=== PATIENT | female | born 1940 | race Caucasian/White ===

== ENCOUNTER 2019-07-18 15:58 | Inpatient (IN) ==
[2019-07-18] MEDS ORDERED: IOPAMIDOL 100 ML BOTTLE IV ONE (15:59)
[2019-07-18] MEDS ORDERED: hydrALAZINE 20 MG/ML VIAL IV ONE (16:13)
[2019-07-18] MEDS ORDERED: KETOROLAC 30 MG/ML VIAL IV ONE (16:21)
[2019-07-18] MEDS ORDERED: CEPHALEXIN 500 MG CAPSULE PO ONE (16:23)
--- NOTE | 2019-07-18 16:24 | Emergency Department Note ---
Chest Pain HPI - General Chief Complaint: Chest Pain Stated Complaint: Chest pain Time Seen by Provider: 07/18/19 16:13 Source: patient, EMS Mode of arrival: EMS Limitations: no limitations - History of Present Illness HPI Narrative: 78-year-old female comes in complaining of chest pain in the epigastric and substernal areas that radiates to her back. She was sweaty and short of breath with that. Additionally she is complaining of lower leg edema for the last 3 weeks. Her blood pressures have been in the 190s systolic for over a month now as well. Unclear if she has had a fever. She was initially seen over minor care and they sent her here-her blood pressure was 240/117 there. They gave her nitroglycerin and sent-here her blood pressure is 196 systolic after getting nitroglycerin - Related Data Home Medications Medication Instructions Recorded Confirmed Estradiol [Estrace] 1 mg PO DAILY 08/12/15 07/18/19 Metoprolol Succinate [Toprol Xl] 50 mg PO DAILY 08/12/15 07/18/19 Omeprazole [PriLOSEC] 20 mg PO ACB 08/12/15 07/18/19 Oxybutynin Chloride [Ditropan] 5 mg PO DAILY 08/12/15 07/18/19 PARoxetine HCL [Paxil] 40 mg PO DAILY 08/12/15 07/18/19 atorvastatin 40 mg tablet 40 mg PO QDAY 10/09/18 07/18/19 Allergies Allergy/AdvReac Type Severity Reaction Status Date / Time No Known Drug Allergies Allergy Verified 07/18/19 15:58 Review of Systems All systems ED: reviewed and negative except as stated. Chest Pain PMH - Past Medical History Attestation: Yes: The following information was validated with the patient. Medical history: Reports: GERD, hyperlipidemia, hypertension, other (Urinary incontinence) Surgical history ED: Reports: knee replacement - Social History smoking status: Former smoker Physical Exam Normocephalic atraumatic. Conjunctive are clear sclerae white and icteric. No nasal discharge or congestion. Oropharynx pink and moist. Neck is supple without lymphadenopathy thyromegaly or carotid bruit. Heart is regular rate and rhythm no murmur appreciated. Lungs are clear to auscultation bilaterally without wheezes rales rhonchi or respiratory distress. Abdomen is soft tender in the epigastrium. Palpation the anterior chest wall also reveals tenderness with sternal palpation. Abdomen without distention. No peritoneal signs or guarding. She does have +1 to pedal edema bilaterally with redness on the lower half of legs bilaterally. Consistent with superficial cellulitis. I do not see any bulla or vesicles. Mildly tender. She is alert oriented able to answer questions appropriately Limitations: no limitations Course Vital Signs Temperature 98.1 F 07/18/19 15:58 Pulse Rate 72 07/18/19 15:58 Respiratory Rate 20 07/18/19 15:58 Blood Pressure 203/86 07/18/19 15:58 Pulse Oximetry (%) 98 07/18/19 15:58 Temperature 98.1 F 07/18/19 15:58 Pulse Rate 84 07/18/19 18:46 Respiratory Rate 9 L 07/18/19 18:46 Blood Pressure 185/94 07/18/19 18:46 Pulse Oximetry (%) 95 07/18/19 18:46 Chest Pain - Lab Data Lab results reviewed: Yes I reviewed the patient's lab results. Result diagrams: 07/18/19 16:24 07/18/19 16:24 Lab Results 07/18/19 07/18/19 07/18/19 Range/Units 16:23 16:24 16:24 WBC 8.2 (4.5-11.0) K/mcL RBC 4.28 (4.00-5.20) M/mcL Hgb 12.4 (12.0-15.0) g/dL Hct 37.3 (36.0-48.0) % POC Hct 36.0 (36.0-48.0) % MCV 87.1 (80.0-100.0) fL MCH 29.1 (26.0-34.0) pg MCHC 33.4 (31.0-36.0) g/dL RDW 14.7 H (11.5-14.5) % Plt Count 228 (140-440) K/mcL MPV 8.9 (7.4-10.4) fL Gran % 63.8 (38.0-78.0) % Lymph % (Auto) 24.9 (15.5-49.0) % [place] % (Auto) 7.7 (1.0-12.0) % Eos % (Auto) 3.2 (0.0-7.0) % Baso % (Auto) 0.4 (0.0-2.0) % Gran # 5.2 (1.8-8.0) K/mcL Lymph # (Auto) 2.0 (1.5-4.8) K/mcL [place] # (Auto) 0.6 (0.1-0.9) K/mcL Eos # (Auto) 0.3 (0.0-0.7) K/mcL Baso # (Auto) 0 (0.0-0.3) K/mcL D-Dimer 1.11 H (0.00-0.40) ug/ml POC Sodium 142 (133-145) mmol/L Sodium 142 (133-145) mmol/L POC Potassium 3.4 (3.3-5.1) mmol/L Potassium 3.5 (3.3-5.1) mmol/L POC Chloride 105 (96-108) mmol/L Chloride 105 (96-108) mmol/L Carbon Dioxide 25 (22-30) mmol/L POC Total CO2 27 (22-30) mmol/L Anion Gap 12.0 (8-16) POC BUN 18 (8-23) mg/dl BUN 17 (8-23) mg/dl Creatinine 1.1 (0.6-1.1) mg/dl POC Creatinine 1.2 H (0.6-1.1) mg/dl GFR Calculation 49 Glucose 99 (70-105) mg/dL POC Glucose 100 (70-105) mg/dL Calcium 8.7 (8.6-10.4) mg/dl POC WB Ioniz Calcium 1.14 L (1.16-1.32) mmol/L Total Bilirubin 0.3 (0.0-1.0) mg/dL AST 20 (0-37) U/l ALT 20 (0-40) U/l Alkaline Phosphatase 131 H (39-117) U/L Troponin T (0-0.03) ng/ml NT-Pro-B Natriuret Pep 172.2 (0-450) pg/ml Total Protein 7.1 (5.9-8.4) gm/dL Albumin 3.9 (3.2-5.2) gm/dL Globulin 3.2 (2.2-3.7) gm/dL Albumin/Globulin Ratio 1.2 (1.0-2.3) Lipase 37 (7-60) U/L 07/18/19 Range/Units 16:24 WBC (4.5-11.0) K/mcL RBC (4.00-5.20) M/mcL Hgb (12.0-15.0) g/dL Hct (36.0-48.0) % POC Hct (36.0-48.0) % MCV (80.0-100.0) fL MCH (26.0-34.0) pg MCHC (31.0-36.0) g/dL RDW (11.5-14.5) % Plt Count (140-440) K/mcL MPV (7.4-10.4) fL Gran % (38.0-78.0) % Lymph % (Auto) (15.5-49.0) % [place] % (Auto) (1.0-12.0) % Eos % (Auto) (0.0-7.0) % Baso % (Auto) (0.0-2.0) % Gran # (1.8-8.0) K/mcL Lymph # (Auto) (1.5-4.8) K/mcL [place] # (Auto) (0.1-0.9) K/mcL Eos # (Auto) (0.0-0.7) K/mcL Baso # (Auto) (0.0-0.3) K/mcL D-Dimer (0.00-0.40) ug/ml POC Sodium (133-145) mmol/L Sodium (133-145) mmol/L POC Potassium (3.3-5.1) mmol/L Potassium (3.3-5.1) mmol/L POC Chloride (96-108) mmol/L Chloride (96-108) mmol/L Carbon Dioxide (22-30) mmol/L POC Total CO2 (22-30) mmol/L Anion Gap (8-16) POC BUN (8-23) mg/dl BUN (8-23) mg/dl Creatinine (0.6-1.1) mg/dl POC Creatinine (0.6-1.1) mg/dl GFR Calculation Glucose (70-105) mg/dL POC Glucose (70-105) mg/dL Calcium (8.6-10.4) mg/dl POC WB Ioniz Calcium (1.16-1.32) mmol/L Total Bilirubin (0.0-1.0) mg/dL AST (0-37) U/l ALT (0-40) U/l Alkaline Phosphatase (39-117) U/L Troponin T < 0.01 (0-0.03) ng/ml NT-Pro-B Natriuret Pep (0-450) pg/ml Total Protein (5.9-8.4) gm/dL Albumin (3.2-5.2) gm/dL Globulin (2.2-3.7) gm/dL Albumin/Globulin Ratio (1.0-2.3) Lipase (7-60) U/L Urinalysis [id number] dipstick is normal here today; urine culture from 2 days ago show pansensitive E. coli except for resistant to ampicillin - Radiology Data Radiology results reviewed: Yes I reviewed the patient's radiology results. Chest x-ray shows no acute cardia pulmonary disease - EKG Data EKG attestation: Yes I reviewed and interpreted this EKG., Yes There are no EKG findings of acute coronary syndrome, Yes This EKG will be read by instructor kindergarten EKG results narrative: Rate is 69 normal sinus rhythm Disposition Pt seen by NETWORK SYSTEMS CONSULTANT/PA only: No Clinical Impression: Hypertensive urgency Cellulitis Qualifiers: Site of cellulitis: extremity Site of cellulitis of extremity: lower extremity Laterality: unspecified laterality Qualified Code(s): L03.119 - Cellulitis of unspecified part of limb Pneumonia Qualifiers: Pneumonia type: due to unspecified organism Laterality: bilateral Lung location: upper lobe of lung Qualified Code(s): J18.1 - Lobar pneumonia, unspec ified organism UTI (urinary tract infection) Qualifiers: Urinary tract infection type: acute cystitis Hematuria presence: without hematuria Qualified Code(s): N30.00 - Acute cystitis without hematuria Summary: Chest pain work-up started. Start Keflex for cellulitis of bilateral lower extremities. Fluids not started because she appears euvolemic on exam I do not want to add fluids if she is actually volume up. T BNP is ordered. Chest x-ray will also shed light on this. EKG is normal Hydralazine is ordered for hypertensive urgency. Concern for acute onset heart failure from long-standing blood pressure issues. Her blood pressure came down with this Chest x-ray does not show any acute features. However d-dimer is markedly elevated. CT scan angiogram of the chest is ordered which shows no acute pulmonary embolism but it does show groundglass opacities consistent with pneumonia/pneumonitis Urine culture was brought to my attention which shows E. coli pansensitive except for ampicillin from 07/16/2019. Her doctor had prescribed ciprofloxacin but she has not taken any yet; she has however picked that up at the pharmacy. We will add Rocephin as this will cover the UTI the cellulitis and the pneumonia/pneumonitis Chest pain work-up is otherwise okay. Troponin is normal more than 8 hours after onset of chest pain She did not bring her med list here so we will get med list from her pharmacy so we can adjust her blood pressure medicine- Discussed case with our hospitalist, Dr. Joyce. He agreed to accept the patient. Recommended nicardipine drip for hypertensive urgency and add vancomycin to the Rocephin already given. He actually recommended Zosyn but we had already given Rocephin. Disposition: Xfer As Inpt ([facility]) Condition: Serious Referrals: Dinesh Olsen ARNP [Primary Care Provider] -
[2019-07-18 16:31] LABS: POC Blood Urea Nitrogen 18 mg/dl (8-23); POC CO2 27 mmol/L (22-30); POC Calcium, Ionized 1.14 mmol/L (1.16-1.32); POC Chloride 105 mmol/L (96-108); POC Creatinine 1.2 mg/dl (0.6-1.1); POC Glucose, Random 100 mg/dL (70-105); POC Potassium 3.4 mmol/L (3.3-5.1); POC Sodium 142 mmol/L (133-145)
--- NOTE | 2019-07-18 16:50 | XRay Report ---
CLINICAL INFORMATION: Chest Pain COMPARISON: 10/09/2018 FINDINGS: Mild cardiomegaly is unchanged. Mediastinum and pulmonary vessels are normal. Lungs are clear. No effusions. IMPRESSION: Mild stable cardiomegaly. No acute disease Interpreted and Authenticated by: Get Melgoza 07/18/19
[2019-07-18 17:18] LABS: Basophils # (Auto) 0 K/mcL (0.0-0.3); Basophils % (Auto) 0.4 % (0.0-2.0); Eosinophils # (Auto) 0.3 K/mcL (0.0-0.7); Eosinophils % (Auto) 3.2 % (0.0-7.0); Granulocytes % (Auto) 63.8 % (38.0-78.0); Hematocrit 37.3 % (36.0-48.0); Hemoglobin 12.4 g/dL (12.0-15.0); Lymphocytes % (Auto) 24.9 % (15.5-49.0); Mean Cell Volume 87.1 fL (80.0-100.0); Mean Corpuscular HGB Conc 33.4 g/dL (31.0-36.0); Mean Platelet Volume 8.9 fL (7.4-10.4); Monocytes # (Auto) 0.6 K/mcL (0.1-0.9); Monocytes % (Auto) 7.7 % (1.0-12.0); Platelet Count 228 K/mcL (140-440); RBC 4.28 M/mcL (4.00-5.20); Red Cell Distribution Width 14.7 % (11.5-14.5); WBC 8.2 K/mcL (4.5-11.0)
[2019-07-18 17:42] LABS: ALT/SGPT 20 U/l (0-40); AST/SGOT 20 U/l (0-37); Albumin 3.9 gm/dL (3.2-5.2); Albumin/Globulin Ratio 1.2 (1.0-2.3); Alkaline Phosphatase 131 U/L (39-117); Bilirubin,Total 0.3 mg/dL (0.0-1.0); Blood Urea Nitrogen 17 mg/dl (8-23); Calcium 8.7 mg/dl (8.6-10.4); Carbon Dioxide 25 mmol/L (22-30); Chloride 105 mmol/L (96-108); Globulin 3.2 gm/dL (2.2-3.7); Glomerular Filtration Rate 49; Glucose 99 mg/dL (70-105); proBNP 172.2 pg/ml (0-450)
[2019-07-18] MEDS ORDERED: NITROFURANTOIN SR 100 MG CAPSULE PO ONE (18:20)
[2019-07-18] MEDS ORDERED: LABETALOL 5 MG/ML ML IV ONE (18:20)
--- NOTE | 2019-07-18 18:36 | Cat Scan Report ---
CLINICAL INFORMATION: Chest pain COMPARISON: 12/08/[address] without contrast TECHNIQUE: ml of Isovue-370 were injected intravenously. Using SmartPrep to maximize pulmonary artery opacification, .625mm helical slices were obtained from the lung apices through the lung bases. Following reconstruction, 2.5 mm sagittal, coronal, and axial reformations were processed. The exam was reviewed at mediastinal, lung, and bone windows. The exam was performed using radiation dose optimization techniques including, but not limited to, automated exposure control, adjustment of the mA and/or kV according to patient size and use of iterative reconstruction technique. FINDINGS: Mediastinal windows show the central pulmonary arteries are at upper limits of normal in diameter: main pulmonary artery 3.1 cm. Thoracic aorta is normal in diameter with diffuse atherosclerotic plaque. The heart is mildly enlarged. There is no adenopathy in the mediastinal hilar or axillary region. Small hiatal hernia is noted. Thyroid is unremarkable Pulmonary parenchymal windows show moderate patchy groundglass infiltrates diffusely throughout both lungs with mosaic perfusion pattern. A 4 mm nodule in the medial basilar segment left lower lobe is stable since 2017. There are no effusions. Bones and soft tissues the chest wall are normal IMPRESSION: 1. No evidence of pulmonary embolus 2. Moderate patchy groundglass infiltrates diffusely throughout both lungs with mosaic perfusion pattern. Consider aspiration or infection. ARDS or hemorrhage would be unlikely. 3. Small hiatal hernia Interpreted and Authenticated by: Get Melgoza 07/18/19
[2019-07-18] MEDS ORDERED: cefTRIAXone 1 GM VIAL IV ONE (18:49)
[2019-07-18] MEDS ORDERED: VANCOMYCIN 1,000 MG in 0.9 % SODIUM CHLORIDE 250 ML IV ONE (19:14)
[2019-07-18] MEDS ORDERED: niCARdipine 25 MG in 0.9 % SODIUM CHLORIDE 240 ML IV SCH ×2 (19:15→19:59)
--- NOTE | 2019-07-18 19:22 | Internal Med History&Physical ---
Medical - H&P: [facility] Patient information: Note initiated : 07/18/19 at 7:18 pm Service Date, if different from initiated Date: [] Patient: Romana Garcia a 78 y/o F admitted on for Chest pain. Chief Complaint: [] Chief complaint: Chest pain, weakness History of present illness: Ms. Garcia is a 78 year old F with a known history of poorly controlled hypertension who presents to minor care with epigastric discomfort along with shortness of breath. Initial work-up was consistent with hypertensive crisis systolics around 250. She was referred to [facility] ER where after initial work- up she was started on nicardipine drip. Initial troponins were negative. Hospitalist service was consulted after chest angiogram CT revealed multifocal infiltrates suggestive of pneumonia without evidence of PE or dissection. At the time of evaluation patient is alert and oriented. She endorses to poorly controlled hypertension for which she has not sought medical attention. She is currently on metoprolol. She endorses to bilateral lower extremity increasing swelling over the last couple of weeks along with increasing redness and pain. Additionally she complains of increasing exertional dyspnea from initially on maximal exertion now on minimal exertion. She is however able to talk in full sentences while at rest. Denies orthopnea or paroxysmal nocturnal dyspnea At the time of evaluation patient is alert and oriented. She denies active distress. She does feel short of breath and complains of bilateral lower extremity pain and swelling. She denies changes in medications. She further denies using NSAIDs or high salt diet. She denies unilateral weakness/blurred vision/hematuria or bloody stool Review of systems A 10 point review system was performed and is negative except as above Medical - H&P: PM Medical history: Hypertension GERD Anxiety disorder Hyperlipidemia Obesity Surgical history: Hysterectomy Smoking status: Former smoker Drug use: none Alcohol use: none Medical - H&P: Meds Home Medications Medication Instructions Recorded Confirmed Type Estradiol [Estrace] 1 mg PO DAILY 08/12/15 07/18/19 History Metoprolol Succinate [Toprol Xl] 50 mg PO DAILY 08/12/15 07/18/19 History Omeprazole [PriLOSEC] 20 mg PO ACB 08/12/15 07/18/19 History Oxybutynin Chloride [Ditropan] 5 mg PO DAILY 08/12/15 07/18/19 History PARoxetine HCL [Paxil] 40 mg PO DAILY 08/12/15 07/18/19 History atorvastatin 40 mg tablet 40 mg PO QDAY 10/09/18 07/18/19 History Allergies Allergy/AdvReac Type Severity Reaction Status Date / Time No Known Drug Allergies Allergy Verified 07/18/19 15:58 Medical - H&P: Exam - Constitutional Vitals: Temp Pulse Resp BP Pulse Ox 98.1 F 84 9 L 185/94 95 07/18/19 15:58 07/18/19 18:46 07/18/19 18:46 07/18/19 18:46 07/18/19 18:46 General appearance: morbidly obese Exam: Alert and oriented Head normocephalic oral cavity dry No ear nose discharge Neck no lymphadenopathy Eye movement symmetrical S1-S2 regular rhythm/ESM grade 1 Diminished breath sounds bases, labored breathing Abdomen soft nontender Lower extremity significant for bilateral lymphedema ankle the mid thigh. Generalized induration along with tenderness noted on palpation Skin otherwise no suspicious lesion Psych alert but anxious Neuro nonfocal Medical - H&P: Reslt - Labs CBC & Chem 7: 07/18/19 16:24 07/18/19 16:24 Labs: Short CBC 07/18/19 Range/Units 16:24 WBC 8.2 (4.5-11.0) K/mcL Hgb 12.4 (12.0-15.0) g/dL Hct 37.3 (36.0-48.0) % Plt Count 228 (140-440) K/mcL BMP 07/18/19 16:24 Sodium 142 Potassium 3.5 Chloride 105 Carbon Dioxide 25 BUN 17 Creatinine 1.1 Glucose 99 Calcium 8.7 Cardiac Enzymes 07/18/19 Range/Units 16:24 Troponin T < 0.01 (0-0.03) ng/ml Liver Function 07/18/19 Range/Units 16:24 Total Bilirubin 0.3 (0.0-1.0) mg/dL AST 20 (0-37) U/l ALT 20 (0-40) U/l Alkaline Phosphatase 131 H (39-117) U/L Albumin 3.9 (3.2-5.2) gm/dL Medical - H&P: A/P (1) Hypertensive crisis Current visit: Yes Status: Acute * Hypertensive crisis with pulmonary edema(bilateral groundglass infiltrates)-i nitial systolics around 250. Start nicardipine drip, initiate oral antihypertensives and target systolic around 160. Echocardiogram from 2018- 65% EF. Repeat echo * Bilateral multifocal pneumonia likely aspiration versus community-acquired versus flash pulmonary edema-antibiotic coverage/aspiration precautions/ST eval/supplemental oxygen/pulmonary toilet/sputum eval * Complicated E. coli UTI continue antibiotic coverage * Bilateral lower extremity cellulitis/lymphangitis/lipoid dermatosclerosis. Wound care consult/limb elevation/compressive wraps/antibiotic coverage/de- escalate based on sensitivities * Hyperlipidemia on statin * History of GERD on PPI * Anxiety disorder on Paxil * Full code * Perplexes Lovenox Plan * Inpatient ICU admission * Antibiotic coverage * Repeat echo * Wound care/limb elevation/compression wraps * Pulmonary toilet/supplemental oxygen/bronchodilators * Prior medical condition management home meds * PT OT nutrition support
[2019-07-18] MEDS ORDERED: MAGNESIUM SULFATE 2 GM/50 ML BAG IV PRN (19:59)
[2019-07-18] MEDS ORDERED: VANCOMYCIN PER PHARMACY IV SCH (19:59)
[2019-07-18] MEDS ORDERED: ACETAMINOPHEN 1,000 MG/100 ML BOTTLE IV PRN (19:59)
[2019-07-18] MEDS ORDERED: POTASSIUM CHLORIDE 20 MEQ PACKET PO PRN (19:59)
[2019-07-18] MEDS ORDERED: hydrALAZINE 20 MG/ML VIAL IV PRN (19:59)
[2019-07-18] MEDS ORDERED: ONDANSETRON 4 MG/2 ML VIAL IV PRN (19:59)
[2019-07-18] MEDS: SENNOSIDES/DOCUSATE SODIUM 1 TAB TABLET PO SCH (21:18)
[2019-07-18] MEDS: DOCUSATE SODIUM 100 MG CAPSULE PO SCH (21:18)
[2019-07-18] MEDS: PIPERACILLIN SODIUM/TAZOBACTAM 3.375 GM in DEXTROSE 5% IN WATER 50 ML IV SCH (21:28)
[2019-07-18] MEDS: ACETAMINOPHEN 325 MG TABLET PO PRN (21:29)
[2019-07-18] MEDS: HEPARIN 5,000 UNIT/ML VIAL SQ SCH (21:29)
[2019-07-18] MEDS: ATORVASTATIN 20 MG TABLET PO SCH (21:29)
[2019-07-18] MEDS: MELATONIN 3 MG TABLET PO PRN (21:29)
[2019-07-18] MEDS: 0.9 % SODIUM CHLORIDE 10 ML SYRINGE IV SCH (21:30)
[2019-07-18] MEDS: BUDESONIDE 0.5 MG/2 ML AMPUL.NEB NEB SCH (21:52)
[2019-07-18] MEDS: IPRATROPIUM/ALBUTEROL 3 ML AMPUL.NEB NEB PRN (21:52)
[2019-07-18] MEDS ORDERED: VANCOMYCIN 500 MG in 0.9 % SODIUM CHLORIDE 100 ML IV ONE (22:00)
[2019-07-18] MEDS: LEVOFLOXACIN 750 MG/150 ML BAG IV SCH (23:05)
[2019-07-19] MEDS: PIPERACILLIN SODIUM/TAZOBACTAM 3.375 GM in DEXTROSE 5% IN WATER 50 ML IV SCH ×2 (00:43→07:40)
[2019-07-19 05:39] LABS: Hematocrit 36.7 % (36.0-48.0); Hemoglobin 11.9 g/dL (12.0-15.0); Mean Corpuscular HGB Conc 32.4 g/dL (31.0-36.0); Mean Platelet Volume 8.7 fL (7.4-10.4); Platelet Count 219 K/mcL (140-440); RBC 4.22 M/mcL (4.00-5.20); WBC 8.2 K/mcL (4.5-11.0)
[2019-07-19] MEDS: 0.9 % SODIUM CHLORIDE 10 ML SYRINGE IV SCH ×3 (05:58→20:08)
[2019-07-19 06:16] LABS: ALT/SGPT 19 U/l (0-40); AST/SGOT 19 U/l (0-37); Albumin 3.5 gm/dL (3.2-5.2); Albumin/Globulin Ratio 1.1 (1.0-2.3); Alkaline Phosphatase 117 U/L (39-117); Bilirubin,Direct < 0.2 mg/dL (0.0-0.3); Bilirubin,Total 0.3 mg/dL (0.0-1.0); Blood Urea Nitrogen 16 mg/dl (8-23); Calcium 8.4 mg/dl (8.6-10.4); Carbon Dioxide 25 mmol/L (22-30); Chloride 105 mmol/L (96-108); Globulin 3.1 gm/dL (2.2-3.7); Glomerular Filtration Rate 62; Glucose 88 mg/dL (70-105); Lactate Dehydrogenase 148 U/L (94-250); Triglycerides 152 mg/dl (<150)
[2019-07-19 06:24] LABS: Anisocytosis 1+ (NONE SEEN); Band Neutrophils % 1 % (0-10); Eosinophils % (Manual) 4 % (0-7); Lymphocytes % 17 % (15-49); Monocytes % (Manual) 5 % (1-12); Platelet Estimate NORMAL (NORMAL); RBC Morphology ABNORM (NORMAL); Segmented Neutrophils % 73 % (38-78)
[2019-07-19] MEDS: OMEPRAZOLE 20 MG CAPSULE PO SCH (07:49)
[2019-07-19] MEDS ORDERED: FUROSEMIDE 40 MG/4 ML VIAL IV SCH (08:00)
[2019-07-19] MEDS: METOPROLOL SUCCINATE 50 MG TAB.XL.24H PO SCH (08:03)
[2019-07-19] MEDS: ACETAMINOPHEN 325 MG TABLET PO PRN (08:38)
[2019-07-19] MEDS: OXYBUTYNIN CHLORIDE 5 MG TABLET PO SCH (08:39)
[2019-07-19] MEDS: MULTIVIT,THER IRON,CA,FA & MIN 1 TABLET PO SCH (08:39)
[2019-07-19] MEDS: DOCUSATE SODIUM 100 MG CAPSULE PO SCH ×2 (08:39→20:08)
[2019-07-19] MEDS: HEPARIN 5,000 UNIT/ML VIAL SQ SCH ×2 (08:40→20:08)
[2019-07-19] MEDS: PARoxetine 20 MG TABLET PO SCH (08:40)
--- NOTE | 2019-07-19 09:26 | Internal Med Progress Note ---
Medical - PN: Subj Patient information: Note initiated : 07/19/19 at 9:22 am Service Date, if different from initiated Date: [] Patient: Romana Garcia a 78 y/o F admitted on 07/18/19 for Chest pain. Chief Complaint: [] Interval history: Ms. Garcia is a 78 year old F with a known history of poorly controlled hypertens ion who presents to minor care with epigastric discomfort along with shortness of breath. Initial work-up was consistent with hypertensive crisis systolics around 250. She was referred to [facility] ER where after initial work-up she was started on nicardipine drip. Initial troponins were negative. Hospitalist service was consulted after chest angiogram CT revealed multifocal infiltrates suggestive of pneumonia without evidence of PE or dissection. At the time of evaluation patient is alert and oriented. She endorses to poorly controlled hypertension for which she has not sought medical attention. She is currently on metoprolol. She endorses to bilateral lower extremity increasing swelling over the last couple of weeks along with increasing redness and pain. Additionally she complains of increasing exertional dyspnea from initially on maximal exertion now on minimal exertion. She is however able to talk in full sentences while at rest. Denies orthopnea or paroxysmal nocturnal dyspnea At the time of evaluation patient is alert and oriented. She denies active distress. She does feel short of breath and complains of bilateral lower extremity pain and swelling. She denies changes in medications. She further denies using NSAIDs or high salt diet. She denies unilateral weakness/blurred vision/hematuria or bloody stool 07/19-patient doing remarkably better. No overnight events. Shortness with improved. Left lower extremity lymphedema and redness much improved. Systolics around 150. Nicardipine drip at 2. Started on LEONARD inhibitor, continue metoprolol 50. Wean nicardipine as tolerated. DC antibiotic coverage in light of negative procalcitonin. - Constitutional Vitals: Vital Signs Temp Pulse Resp BP Pulse Ox 97.6 F 74 19 178/96 92 07/19/19 08:02 07/19/19 08:07 07/19/19 08:07 07/19/19 08:02 07/19/19 08:07 Period Temp Pulse Resp BP Sys/Velez Pulse Ox Last 24 Hr 97.5 F-98.2 F 68-90 9-31 114-203/49-114 89-98 Intake and Output 07/18/19 07/19/19 07/19/19 21:59 05:59 13:59 Intake Total 250 683 417 Output Total 550 1250 700 Balance -300 -567 -283 Weight 249 lb 9.6 oz Intake & Output: Intake & Output 07/18/19 07/19/19 07/19/19 21:59 05:59 13:59 Intake Total 250 683 417 Output Total 550 1250 700 Balance -300 -567 -283 Weight 249 lb 9.6 oz Intake: IV 250 443 57 Zosyn 3.375 gm In Dextrose 5% 100 in Water 50 ml @ 100 mls/hr IV Q6H [facility] Rx#:[id number] Vancomycin 1,000 mg In Sodium 250 Chloride 0.9% 250 ml @ 250 mls/ hr IV ONCE ONE Rx#:[id number] Cardene 25 MG In Sodium 193 57 Chloride 0.9% 240 ml @ 5 MG/HR 50 mls/hr IV ONCE [facility] Rx#: [id number] Oral 240 360 Output: Void Amount 550 1250 700 Other: Meal Breakfast Percent of Meal Consumed 100% Feeding Ability Independent Urine Appearance Clear Clear Clear Urine Color Straw Straw Pale General appearance: no acute distress Exam: Alert oriented Nonlabored breathing Improved lower extremity edema/erythema No telemetry events Minimal anxiety Medical - PN: Obj Da - Labs CBC & Chem 7: 07/19/19 03:38 07/19/19 03:38 Labs: Abnormal Lab Results 07/19/19 07/19/19 07/18/19 03:38 03:38 16:24 Hgb 11.9 L RDW 15.0 H RBC Morphology Abnorm A Anisocytosis 1+ A ESR D-Dimer POC Creatinine 1.2 H Calcium 8.4 L POC WB Ioniz Calcium 1.14 L Alkaline Phosphatase 131 H Triglycerides 152 H 07/18/19 07/18/19 07/18/19 16:24 16:23 16:13 Hgb RDW 14.7 H RBC Morphology Anisocytosis ESR 22 H D-Dimer 1.11 H POC Creatinine Calcium POC WB Ioniz Calcium Alkaline Phosphatase Triglycerides Meds: Medications Acetaminophen (Tylenol) 650 mg PO Q4-6HP PRN PRN Reason: PAIN/FEVER > 101 Last Admin: 07/19/19 08:38 Dose: 650 mg Documented by: Albuterol/Ipratropium (Duoneb) 3 ml NEB Q4HP PRN PRN Reason: Shortness Of Breath Last Admin: 07/18/19 21:52 Dose: 3 ml Documented by: Atorvastatin Calcium (Lipitor) 40 mg PO HS [facility] Last Admin: 07/18/19 21:29 Dose: 40 mg Documented by: Budesonide (Pulmicort) 0.5 mg NEB Q12 [facility] Last Admin: 07/18/19 21:52 Dose: 0.5 mg Documented by: Docusate Sodium (Colace) 100 mg PO BID [facility] Last Admin: 07/19/19 08:39 Dose: 100 mg Documented by: Furosemide (Lasix) 20 mg IV BIDD [facility] Last Admin: 07/19/19 08:03 Dose: 20 mg Documented by: Heparin Sodium (Porcine) (Heparin) 5,000 unit SQ Q12 [facility] Last Admin: 07/19/19 08:40 Dose: 5,000 unit Documented by: Hydralazine HCl (Apresoline) 10 mg IV Q4-6HP PRN PRN Reason: Hypertension Nicardipine HCl 25 mg/ Sodium (Chloride) 250 mls @ 50 mls/hr IV ONCE [facility]; Protocol Last Titration: 07/19/19 07:05 Dose: Infused Documented by: Acetaminophen (Ofirmev) 1,000 mg in 100 mls @ 200 mls/hr IV Q6HP PRN PRN Reason: PAIN/FEVER > 101 Magnesium Sulfate (Magnesium Sulfate) 2 gm in 50 mls @ 50 mls/hr IV UD PRN PRN Reason: MG = or < 1.7 Piperacillin Sod/Tazobactam (Sod 3.375 gm/ Dextrose) 50 mls @ 100 mls/hr IV Q6H [facility]; Protocol Last Admin: 07/19/19 07:40 Dose: 100 mls/hr Documented by: Levofloxacin (Levaquin) 750 mg in 150 mls @ 100 mls/hr IV Q24H [facility]; Protocol Last Infusion: 07/19/19 01:14 Dose: Infused Documented by: Vancomycin HCl 1,500 mg/ (Sodium Chloride) 500 mls @ 333.3 mls/hr IV Q24H [facility] Iron Carb/Multivit/Electrical Engineering Draftsperson/Folic Acid (Multivitamin W/Minerals) 1 tab PO DAILY [facility] Last Admin: 07/19/19 08:39 Dose: 1 tab Documented by: Melatonin (Melatonin 3mg Tablet) 3 mg PO HSP PRN PRN Reason: Insomnia Last Admin: 07/18/19 21:29 Dose: 3 mg Documented by: Metoprolol Succinate (Toprol Xl) 50 mg PO DAILY [facility] Last Admin: 07/19/19 08:03 Dose: 50 mg Documented by: Omeprazole (Prilosec) 20 mg PO ACB [facility] Last Admin: 07/19/19 07:49 Dose: 20 mg Documented by: Ondansetron HCl (Zofran) 4 mg IV Q4-6HP PRN PRN Reason: Nausea And Vomiting Oxybutynin Chloride (Ditropan) 5 mg PO DAILY [facility] Last Admin: 07/19/19 08:39 Dose: 5 mg Documented by: Paroxetine HCl (Paxil) 40 mg PO DAILY [facility] Last Admin: 07/19/19 08:40 Dose: 40 mg Documented by: Potassium Chloride (Klor-Con) 40 meq PO DAILYP PRN PRN Reason: K+ < 3.5 Senna/Docusate Sodium (Senna Plus Tablet) 1 tab PO HS [facility] Last Admin: 07/18/19 21:18 Dose: Not Given Documented by: Sodium Chloride (Saline Flush) 10 ml IV Q8 [facility] Last Admin: 07/19/19 05:58 Dose: 10 ml Documented by: Vancomycin HCl (Vancomycin Per Pharmacy) 1 order IV UD [facility]; Protocol Medical - PN: A/P - Time Spent With Patient Total time spent is greater than 50% in coordination of care (as documented) at patient's floor/unit and/or counseling patient: 25 - 35 minutes (1) Hypertensive crisis Status: Acute Assessment and plan: * Hypertensive crisis with pulmonary edema(bilateral groundglass infiltrates)- clinical improvement noted with aggressive diuresis. Continue antihypertensives. Start LEONARD inhibitor and continue beta-raul. Titrate nicardipine drip. Await echocardiogram. Echocardiogram from 2018- 65% EF. * Bilateral multifocal pneumonia versus flash pulmonary edema-procalcitonin negative. DC antibiotics. Continue diuresis/aspiration precautions/ST eval/supplemental oxygen/pulmonary toilet * Complicated E. coli UTI DC antibiotics as asymptomatic * Bilateral lower extremity cellulitis/lymphangitis/lipoid dermatosclerosis. Clinically improving with diuresis, continue limb elevation/start compressive wrap * Hyperlipidemia on statin * History of GERD on PPI * Anxiety disorder on Paxil * Full code * Perplexes Lovenox Plan * Wean nicardipine drip as tolerated * start LEONARD inhibitor * DC antibiotics * Await echo * Increase diuretic dose/limb elevation/compression wraps * Prior medical condition management home meds * PT OT nutrition support * Discharge planning Current Visit: Yes
[2019-07-19] MEDS: FUROSEMIDE 40 MG/4 ML VIAL IV SCH ×2 (09:31→17:43)
[2019-07-19] MEDS: LISINOPRIL 10 MG TABLET PO SCH (09:33)
[2019-07-19] MEDS: IPRATROPIUM/ALBUTEROL 3 ML AMPUL.NEB NEB PRN ×2 (09:40→20:26)
[2019-07-19] MEDS: BUDESONIDE 0.5 MG/2 ML AMPUL.NEB NEB SCH ×2 (09:40→20:26)
[2019-07-19] MEDS ORDERED: VANCOMYCIN 1,500 MG in 0.9 % SODIUM CHLORIDE 500 ML IV SCH (10:00)
[2019-07-19] MEDS ORDERED: niCARdipine 25 MG in 0.9 % SODIUM CHLORIDE 240 ML IV PRN (11:00)
[2019-07-19] MEDS: LEVOFLOXACIN 750 MG/150 ML BAG IV SCH (14:46)
[2019-07-19] MEDS: MELATONIN 3 MG TABLET PO PRN (20:08)
[2019-07-19] MEDS: SENNOSIDES/DOCUSATE SODIUM 1 TAB TABLET PO SCH (20:08)
[2019-07-19] MEDS: ATORVASTATIN 20 MG TABLET PO SCH (20:08)
[2019-07-20] MEDS: FUROSEMIDE 40 MG/4 ML VIAL IV SCH (02:47)
[2019-07-20 04:55] LABS: Hematocrit 36.6 % (36.0-48.0); Mean Cell Volume 87.3 fL (80.0-100.0); Mean Corpuscular HGB Conc 32.9 g/dL (31.0-36.0); Mean Platelet Volume 8.7 fL (7.4-10.4); Platelet Count 224 K/mcL (140-440); RBC 4.19 M/mcL (4.00-5.20)
[2019-07-20 05:23] LABS: ALT/SGPT 16 U/l (0-40); AST/SGOT 16 U/l (0-37); Albumin 3.6 gm/dL (3.2-5.2); Albumin/Globulin Ratio 1.2 (1.0-2.3); Alkaline Phosphatase 114 U/L (39-117); Bilirubin,Direct < 0.2 mg/dL (0.0-0.3); Bilirubin,Total 0.4 mg/dL (0.0-1.0); Blood Urea Nitrogen 17 mg/dl (8-23); Calcium 8.5 mg/dl (8.6-10.4); Carbon Dioxide 28 mmol/L (22-30); Chloride 103 mmol/L (96-108); Glomerular Filtration Rate 44; Glucose 93 mg/dL (70-105); Lactate Dehydrogenase 141 U/L (94-250); Phosphorous 3.3 mg/dL (2.7-4.5); Triglycerides 135 mg/dl (<150); Uric Acid 4.7 mg/dL (2.5-8.0)
[2019-07-20 05:36] LABS: Band Neutrophils % 1 % (0-10); Basophils % (Manual) 1 % (0-2); Lymphocytes % 21 % (15-49); Monocytes % (Manual) 11 % (1-12); Platelet Estimate NORMAL (NORMAL); RBC Morphology NORMAL (NORMAL); Segmented Neutrophils % 66 % (38-78)
[2019-07-20] MEDS: 0.9 % SODIUM CHLORIDE 10 ML SYRINGE IV SCH ×3 (05:59→21:14)
[2019-07-20] MEDS: OMEPRAZOLE 20 MG CAPSULE PO SCH (07:16)
[2019-07-20] MEDS ORDERED: FUROSEMIDE 20 MG/2 ML VIAL IV SCH (08:00)
--- NOTE | 2019-07-20 08:13 | Internal Med Progress Note ---
Medical - PN: Subj Patient information: Note initiated : 07/20/19 at 8:11 am Service Date, if different from initiated Date: [] Patient: Romana Garcia a 78 y/o F admitted on 07/18/19 for Chest pain. Chief Complaint: [] Interval history: Ms. Garcia is a 78 year old F with a known history of poorly controlled hypertens ion who presents to minor care with epigastric discomfort along with shortness of breath. Initial work-up was consistent with hypertensive crisis systolics around 250. She was referred to [facility] ER where after initial work-up she was started on nicardipine drip. Initial troponins were negative. Hospitalist service was consulted after chest angiogram CT revealed multifocal infiltrates suggestive of pneumonia without evidence of PE or dissection. At the time of evaluation patient is alert and oriented. She endorses to poorly controlled hypertension for which she has not sought medical attention. She is currently on metoprolol. She endorses to bilateral lower extremity increasing swelling over the last couple of weeks along with increasing redness and pain. Additionally she complains of increasing exertional dyspnea from initially on maximal exertion now on minimal exertion. She is however able to talk in full sentences while at rest. Denies orthopnea or paroxysmal nocturnal dyspnea At the time of evaluation patient is alert and oriented. She denies active distress. She does feel short of breath and complains of bilateral lower extremity pain and swelling. She denies changes in medications. She further denies using NSAIDs or high salt diet. She denies unilateral weakness/blurred vision/hematuria or bloody stool 07/19-patient doing remarkably better. No overnight events. Shortness with improved. Left lower extremity lymphedema and redness much improved. Systolics around 150. Nicardipine drip at 2. Started on LEONARD inhibitor, continue metoprolol 50. Wean nicardipine as tolerated. DC antibiotic coverage in light of negative procalcitonin. 07/20-patient doing a lot better. Responding to antihypertensives with blood pressure around 145 down from 240. Flash pulmonary edema clinically resolved. Off nicardipine drip. Continue uptitrating antihypertensives. Repeat chest imaging awaited. DC antibiotics as no evidence of pneumonia with a negative pr ocalcitonin. Transition to medical floor. White count 8000. Creatinine stable at 1.2. - Constitutional Vitals: Vital Signs Temp Pulse Resp BP Pulse Ox 99.1 F H 72 18 149/82 93 07/20/19 07:02 07/20/19 07:53 07/20/19 07:53 07/20/19 07:02 07/20/19 07:53 Period Temp Pulse Resp BP Sys/Velez Pulse Ox Last 24 Hr 98.1 F-99.1 F 54-72 9-27 128-175/67-98 86-98 Intake and Output 07/19/19 07/20/19 07/20/19 21:59 05:59 13:59 Intake Total 630 240 Output Total 825 400 Balance -195 -160 Weight 248 lb Intake & Output: Intake & Output 07/19/19 07/20/19 07/20/19 21:59 05:59 13:59 Intake Total 630 240 Output Total 825 400 Balance -195 -160 Weight 248 lb Intake: IV 150 Oral 480 240 Output: Void Amount 825 400 Other: Meal Dinner Percent of Meal Consumed 100% Feeding Ability Independent Urine Appearance Clear Clear Urine Color Straw Bright Yellow Stool Size Moderate Moderate Stool Color Brown Brown Stool Consistency Soft Soft Formed Formed # Bowel Movements 1 General appearance: no acute distress Exam: Alert oriented Nonlabored breathing Much improved lower extremity lymphedema No telemetry event Off nicardipine drip No anxiety Medical - PN: Obj Da - Labs CBC & Chem 7: 07/20/19 03:43 07/20/19 03:43 Labs: Abnormal Lab Results 07/20/19 07/20/19 07/19/19 03:43 03:43 03:38 Hgb RDW 15.0 H RBC Morphology Anisocytosis ESR D-Dimer Creatinine 1.2 H POC Creatinine Calcium 8.5 L 8.4 L POC WB Ioniz Calcium Alkaline Phosphatase Triglycerides 152 H 07/19/19 07/18/19 07/18/19 03:38 16:24 16:24 Hgb 11.9 L RDW 15.0 H 14.7 H RBC Morphology Abnorm A Anisocytosis 1+ A ESR D-Dimer Creatinine POC Creatinine 1.2 H Calcium POC WB Ioniz Calcium 1.14 L Alkaline Phosphatase 131 H Triglycerides 07/18/19 07/18/19 16:23 16:13 Hgb RDW RBC Morphology Anisocytosis ESR 22 H D-Dimer 1.11 H Creatinine POC Creatinine Calcium POC WB Ioniz Calcium Alkaline Phosphatase Triglycerides Meds: Medications Acetaminophen (Tylenol) 650 mg PO Q4-6HP PRN PRN Reason: PAIN/FEVER > 101 Last Admin: 07/19/19 08:38 Dose: 650 mg Documented by: Albuterol/Ipratropium (Duoneb) 3 ml NEB Q4HP PRN PRN Reason: Shortness Of Breath Last Admin: 07/19/19 20:26 Dose: 3 ml Documented by: Atorvastatin Calcium (Lipitor) 40 mg PO HS [facility] Last Admin: 07/19/19 20:08 Dose: 40 mg Documented by: Budesonide (Pulmicort) 0.5 mg NEB Q12 [facility] Last Admin: 07/19/19 20:26 Dose: 0.5 mg Documented by: Docusate Sodium (Colace) 100 mg PO BID [facility] Last Admin: 07/19/19 20:08 Dose: Not Given Documented by: Furosemide (Lasix) 20 mg IV BIDD [facility] Heparin Sodium (Porcine) (Heparin) 5,000 unit SQ Q12 [facility] Last Admin: 07/19/19 20:08 Dose: 5,000 unit Documented by: Hydralazine HCl (Apresoline) 10 mg IV Q4-6HP PRN PRN Reason: Hypertension Acetaminophen (Ofirmev) 1,000 mg in 100 mls @ 200 mls/hr IV Q6HP PRN PRN Reason: PAIN/FEVER > 101 Magnesium Sulfate (Magnesium Sulfate) 2 gm in 50 mls @ 50 mls/hr IV UD PRN PRN Reason: MG = or < 1.7 Levofloxacin (Levaquin) 750 mg in 150 mls @ 100 mls/hr IV Q24H [facility]; Protocol Last Infusion: 07/19/19 18:41 Dose: Infused Documented by: Nicardipine HCl 25 mg/ Sodium (Chloride) 250 mls @ 50 mls/hr IV Q5HP PRN; Protocol PRN Reason: Hypertensive Emergency Iron Carb/Multivit/Warehouse Assistant/Folic Acid (Multivitamin W/Minerals) 1 tab PO DAILY [facility] Last Admin: 07/19/19 08:39 Dose: 1 tab Documented by: Lisinopril (Zestril) 10 mg PO DAILY [facility] Last Admin: 07/19/19 09:33 Dose: 10 mg Documented by: Melatonin (Melatonin 3mg Tablet) 3 mg PO HSP PRN PRN Reason: Insomnia Last Admin: 07/19/19 20:08 Dose: 3 mg Documented by: Metoprolol Succinate (Toprol Xl) 50 mg PO DAILY [facility] Last Admin: 07/19/19 08:03 Dose: 50 mg Documented by: Omeprazole (Prilosec) 20 mg PO ACB [facility] Last Admin: 07/20/19 07:16 Dose: 20 mg Documented by: Ondansetron HCl (Zofran) 4 mg IV Q4-6HP PRN PRN Reason: Nausea And Vomiting Oxybutynin Chloride (Ditropan) 5 mg PO DAILY [facility] Last Admin: 07/19/19 08:39 Dose: 5 mg Documented by: Paroxetine HCl (Paxil) 40 mg PO DAILY [facility] Last Admin: 07/19/19 08:40 Dose: 40 mg Documented by: Potassium Chloride (Klor-Con) 40 meq PO DAILYP PRN PRN Reason: K+ < 3.5 Senna/Docusate Sodium (Senna Plus Tablet) 1 tab PO HS [facility] Last Admin: 07/19/19 20:08 Dose: Not Given Documented by: Sodium Chloride (Saline Flush) 10 ml IV Q8 [facility] Last Admin: 07/20/19 05:59 Dose: 10 ml Documented by: Medical - PN: A/P - Time Spent With Patient Total time spent is greater than 50% in coordination of care (as documented) at patient's floor/unit and/or counseling patient: 25 - 35 minutes (1) Hypertensive crisis Status: Acute Assessment and plan: * Hypertensive crisis with flash pulmonary edema(bilateral groundglass infiltrates)-clinical improvement noted with aggressive diuresis. Await repeat chest imaging. Weaned off nicardipine drip. Satisfactory response to initiation of LEONARD inhibitor and continuing home dose beta-raul. Echocardiogram from 2018- 65% EF. Repeat echo pending * Bilateral multifocal pneumonia versus flash pulmonary edema-procalcitonin negative. Off antibiotics. Satisfactory clinical response to ongoing diuresis/continue aspiration precautions/ST eval/supplemental oxygen/pulmonary toilet * Acute hypoxic respiratory failure-clinically improving and now on 2 L oxygen. Venous tolerated * Complicated E. coli UTI -antibiotics discontinued * Bilateral lower extremity lymphedema with lipodermatosclerosis. Clinically improving with diuresis, continue limb elevation/ compressive wrap * Hyperlipidemia on statin * History of GERD on PPI * Anxiety disorder well-controlled on home dose Paxil * Full code * Perplexes Lovenox Plan * Transfer to medical floor * Continue LEONARD inhibitor/beta-raul * Await repeat echo * Continue diuresis/limb elevation/compression wraps * Prior medical condition management home meds * PT OT nutrition support * Recommend outpatient lymphedema treatment/initiation of scheduled low-dose diuretics on discharge * Discharge home likely in 24 to 48 hours Current Visit: Yes
--- NOTE | 2019-07-20 08:53 | XRay Report ---
CLINICAL INFORMATION: Shortness of breath COMPARISON: 07/18/[address] plain film [address] chest CT 07/18/2019 FINDINGS: Mild cardiomegaly is unchanged. Mediastinum and pulmonary vessels are normal. On chest CT, patient has patchy bilateral groundglass infiltrates, however these are not visualized on plain film. No effusion IMPRESSION: Mild cardiomegaly - stable. The patchy bilateral groundglass infiltrates, seen on recent CT, are occult on plain film. For any significant decline in pulmonary status, consider repeat chest CT to compare to the examination two days ago Interpreted and Authenticated by: Get Melgoza 07/20/19
[2019-07-20] MEDS: DOCUSATE SODIUM 100 MG CAPSULE PO SCH ×2 (09:31→21:14)
[2019-07-20] MEDS: HEPARIN 5,000 UNIT/ML VIAL SQ SCH ×2 (09:31→21:13)
[2019-07-20] MEDS: LISINOPRIL 10 MG TABLET PO SCH (09:32)
[2019-07-20] MEDS: PARoxetine 20 MG TABLET PO SCH (09:32)
[2019-07-20] MEDS: METOPROLOL SUCCINATE 50 MG TAB.XL.24H PO SCH (09:32)
[2019-07-20] MEDS: MULTIVIT,THER IRON,CA,FA & MIN 1 TABLET PO SCH (09:32)
[2019-07-20] MEDS: OXYBUTYNIN CHLORIDE 5 MG TABLET PO SCH (09:32)
[2019-07-20] MEDS: BUDESONIDE 0.5 MG/2 ML AMPUL.NEB NEB SCH (09:38)
[2019-07-20] MEDS: IPRATROPIUM/ALBUTEROL 3 ML AMPUL.NEB NEB PRN (09:38)
[2019-07-20] MEDS: LEVOFLOXACIN 750 MG/150 ML BAG IV SCH (10:12)
[2019-07-20] MEDS ORDERED: ONDANSETRON 4 MG/2 ML VIAL IV PRN (10:27)
[2019-07-20] MEDS ORDERED: POTASSIUM CHLORIDE 20 MEQ PACKET PO PRN (10:27)
[2019-07-20] MEDS ORDERED: hydrALAZINE 20 MG/ML VIAL IV PRN (10:27)
[2019-07-20] MEDS ORDERED: MELATONIN 3 MG TABLET PO PRN (10:27)
[2019-07-20] MEDS ORDERED: MAGNESIUM SULFATE 2 GM/50 ML BAG IV PRN (10:27)
[2019-07-20] MEDS ORDERED: ACETAMINOPHEN 1,000 MG/100 ML BOTTLE IV PRN (10:27)
[2019-07-20] MEDS ORDERED: IPRATROPIUM/ALBUTEROL 3 ML AMPUL.NEB NEB PRN (10:27)
[2019-07-20] MEDS: FUROSEMIDE 20 MG/2 ML VIAL IV SCH (16:09)
[2019-07-20] MEDS ORDERED: BUDESONIDE 0.5 MG/2 ML AMPUL.NEB NEB SCH (21:00)
[2019-07-20] MEDS: ATORVASTATIN 20 MG TABLET PO SCH (21:13)
[2019-07-20] MEDS: SENNOSIDES/DOCUSATE SODIUM 1 TAB TABLET PO SCH (21:14)
[2019-07-21 04:51] LABS: Hematocrit 38.5 % (36.0-48.0); Hemoglobin 12.7 g/dL (12.0-15.0); Mean Cell Volume 86.9 fL (80.0-100.0); Platelet Count 211 K/mcL (140-440); RBC 4.44 M/mcL (4.00-5.20); Red Cell Distribution Width 14.5 % (11.5-14.5); WBC 8.6 K/mcL (4.5-11.0)
[2019-07-21 05:12] LABS: ALT/SGPT 15 U/l (0-40); AST/SGOT 17 U/l (0-37); Albumin 3.7 gm/dL (3.2-5.2); Albumin/Globulin Ratio 1.1 (1.0-2.3); Alkaline Phosphatase 115 U/L (39-117); Bilirubin,Direct < 0.2 mg/dL (0.0-0.3); Bilirubin,Total 0.4 mg/dL (0.0-1.0); Blood Urea Nitrogen 18 mg/dl (8-23); Calcium 8.8 mg/dl (8.6-10.4); Carbon Dioxide 28 mmol/L (22-30); Chloride 102 mmol/L (96-108); Globulin 3.3 gm/dL (2.2-3.7); Glomerular Filtration Rate 49; Glucose 90 mg/dL (70-105); Lactate Dehydrogenase 153 U/L (94-250); Phosphorous 3.2 mg/dL (2.7-4.5); Triglycerides 193 mg/dl (<150); Uric Acid 5.5 mg/dL (2.5-8.0)
[2019-07-21 05:19] LABS: Basophils % (Manual) 1 % (0-2); Eosinophils % (Manual) 4 % (0-7); Lymphocytes % 22 % (15-49); Monocytes % (Manual) 4 % (1-12); Platelet Estimate NORMAL (NORMAL); RBC Morphology NORMAL (NORMAL); Segmented Neutrophils % 69 % (38-78)
[2019-07-21] MEDS: 0.9 % SODIUM CHLORIDE 10 ML SYRINGE IV SCH ×3 (06:24→20:48)
[2019-07-21] MEDS: OMEPRAZOLE 20 MG CAPSULE PO SCH (07:25)
[2019-07-21] MEDS: FUROSEMIDE 20 MG/2 ML VIAL IV SCH (07:25)
[2019-07-21] MEDS: DOCUSATE SODIUM 100 MG CAPSULE PO SCH ×2 (08:38→20:46)
[2019-07-21] MEDS: PARoxetine 20 MG TABLET PO SCH (08:39)
[2019-07-21] MEDS: OXYBUTYNIN CHLORIDE 5 MG TABLET PO SCH (08:40)
[2019-07-21] MEDS: HEPARIN 5,000 UNIT/ML VIAL SQ SCH ×2 (08:41→20:47)
[2019-07-21] MEDS: ACETAMINOPHEN 325 MG TABLET PO PRN ×2 (08:42→15:33)
[2019-07-21] MEDS: LISINOPRIL 20 MG TABLET PO SCH ×2 (08:46→20:45)
[2019-07-21] MEDS: METOPROLOL SUCCINATE 50 MG TAB.XL.24H PO SCH (08:47)
[2019-07-21] MEDS: MULTIVIT,THER IRON,CA,FA & MIN 1 TABLET PO SCH (08:48)
[2019-07-21] MEDS ORDERED: LISINOPRIL 10 MG TABLET PO SCH (09:00)
[2019-07-21] MEDS: FUROSEMIDE 40 MG TABLET PO SCH (15:13)
--- NOTE | 2019-07-21 17:15 | Internal Med Progress Note ---
Medical - PN: Subj Patient information: Note initiated : 07/21/19 at 5:13 pm Service Date, if different from initiated Date: [] Patient: Romana Garcia a 78 y/o F admitted on 07/18/19 for Chest pain. Chief Complaint: [] Interval history: Ms. Garcia is a 78 year old F with a known history of poorly controlled hypertension who presents to minor care with epigastric discomfort along with shortness of breath. Initial work-up was consistent with hypertensive crisis systolics around 250. She was referred to [facility] ER where after initial work- up she was started on nicardipine drip. Initial troponins were negative. Hospitalist service was consulted after chest angiogram CT revealed multifocal infiltrates suggestive of pneumonia without evidence of PE or dissection. At the time of evaluation patient is alert and oriented. She endorses to poorly controlled hypertension for which she has not sought medical attention. She is currently on metoprolol. She endorses to bilateral lower extremity increasing swelling over the last couple of weeks along with increasing redness and pain. Additionally she complains of increasing exertional dyspnea from initially on maximal exertion now on minimal exertion. She is however able to talk in full sentences while at rest. Denies orthopnea or paroxysmal nocturnal dyspnea At the time of evaluation patient is alert and oriented. She denies active distress. She does feel short of breath and complains of bilateral lower extremity pain and swelling. She denies changes in medications. She further denies using NSAIDs or high salt diet. She denies unilateral weakness/blurred vision/hematuria or bloody stool 07/19-patient doing remarkably better. No overnight events. Shortness with improved. Left lower extremity lymphedema and redness much improved. Systolics around 150. Nicardipine drip at 2. Started on LEONARD inhibitor, continue metoprolol 50. Wean nicardipine as tolerated. DC antibiotic coverage in light of negative procalcitonin. 07/20-patient doing a lot better. Responding to antihypertensives with blood pressure around 145 down from 240. Flash pulmonary edema clinically resolved. Off nicardipine drip. Continue uptitrating antihypertensives. Repeat chest imaging awaited. DC antibiotics as no evidence of pneumonia with a negative pro calcitonin. Transition to medical floor. White count 8000. Creatinine stable at 1.2. 07/21: Blood pressure remain more than 160, increase lisinopril to 20 twice daily, pulmonary edema improved and she is saturating more than 95% on room air. Bilateral leg erythema probably due to edema. No evidence of pneumonia clinically or laboratory cisneros but CTA was suspicious. Antibiotic discontinued no evidence of sepsis. Discussed with the patient and once her blood pressure is controlled less than 160 on p.o. medication plan is to discharge her tomorrow. Pertinent ROS: General-alert oriented answering questions Respiratory-shortness of breath improved, no respiratory distress Chest-denied any chest pain, no palpitations Abdomen-mildly distended otherwise no pain Lower extremity-complaining of pain Neurology:-No motor or sensory deficit - Constitutional Vitals: Vital Signs Temp Pulse Resp BP Pulse Ox 97.7 F 52 L 16 166/77 92 07/21/19 11:03 07/21/19 15:38 07/21/19 15:38 07/21/19 15:38 07/21/19 15:38 Period Temp Pulse Resp BP Sys/Velez Pulse Ox Last 24 Hr 97.1 F-98.4 F 52-73 14-24 128-167/66-82 91-93 Intake and Output 07/21/19 07/21/19 07/21/19 05:59 13:59 21:59 Intake Total 450 960 600 Output Total 200 700 Balance 250 260 600 Weight 251 lb Patient Weight 07/22/19 05:59 Weight 251 lb Intake & Output: Intake & Output 07/21/19 07/21/19 07/21/19 05:59 13:59 21:59 Intake Total 450 960 600 Output Total 200 700 Balance 250 260 600 Weight 251 lb Intake: Oral 450 960 600 Output: Void Amount 200 700 Other: Meal Lunch Percent of Meal Consumed 75% Feeding Ability Independent Urine Appearance Clear Urine Color Pale Pale Urine Odor Normal Normal # Voids 1 General appearance: cooperative, no acute distress - Head Head exam: Present: atraumatic, normal inspection, normocephalic - Eye Eye exam: Present: normal appearance. Absent: conjunctival injection Pupils: Present: PERRL - ENT ENT exam: Present: mucous membranes moist, normal exam, normal oropharynx - Neck Neck exam: Present: full ROM. Absent: lymphadenopathy, tenderness, thyromegaly - Respiratory Respiratory exam: Present: rales. Absent: respiratory distress, rhonchi, stridor, wheezes - Cardiovascular Cardiovascular exam: Absent: diastolic murmur, +S3, systolic murmur, tachycardia - GI/Abdominal GI/Abdominal exam: Present: normal bowel sounds, soft. Absent: bruit, guarding - Extremities Exam Extremities exam: Present: pedal edema - Neurological Exam Neurological exam: Present: alert, normal gait. Absent: abnormal gait, altered, CN II-XII intact, motor sensory deficit - Psychiatric Psychiatric exam: Present: normal affect, normal mood. Absent: anxious, depressed - Skin Skin exam: Present: erythema (b/l le) Medical - PN: Obj Da - Labs CBC & Chem 7: 07/21/19 03:33 07/21/19 03:33 Labs: Abnormal Lab Results 07/21/19 07/20/19 07/20/19 03:33 03:43 03:43 Hgb RDW 15.0 H RBC Morphology Anisocytosis ESR D-Dimer Creatinine 1.2 H Calcium 8.5 L Alkaline Phosphatase Triglycerides 193 H 07/19/19 07/19/19 07/18/19 03:38 03:38 16:24 Hgb 11.9 L RDW 15.0 H RBC Morphology Abnorm A Anisocytosis 1+ A ESR D-Dimer Creatinine Calcium 8.4 L Alkaline Phosphatase 131 H Triglycerides 152 H 07/18/19 07/18/19 07/18/19 16:24 16:23 16:13 Hgb RDW 14.7 H RBC Morphology Anisocytosis ESR 22 H D-Dimer 1.11 H Creatinine Calcium Alkaline Phosphatase Triglycerides Meds: Medications Acetaminophen (Tylenol) 650 mg PO Q4-6HP PRN PRN Reason: PAIN/FEVER > 101 Last Admin: 07/21/19 15:33 Dose: 650 mg Documented by: Albuterol/Ipratropium (Duoneb) 3 ml NEB Q4HP PRN PRN Reason: Shortness Of Breath Last Admin: 07/20/19 20:11 Dose: 3 ml Documented by: Atorvastatin Calcium (Lipitor) 40 mg PO HS [facility] Last Admin: 07/20/19 21:13 Dose: 40 mg Documented by: Docusate Sodium (Colace) 100 mg PO BID [facility] Last Admin: 07/21/19 08:38 Dose: 100 mg Documented by: Furosemide (Lasix) 40 mg PO BIDD [facility] Last Admin: 07/21/19 15:13 Dose: 40 mg Documented by: Heparin Sodium (Porcine) (Heparin) 5,000 unit SQ Q12 [facility] Last Admin: 07/21/19 08:41 Dose: 5,000 unit Documented by: Hydralazine HCl (Apresoline) 10 mg IV Q4-6HP PRN PRN Reason: Hypertension Magnesium Sulfate (Magnesium Sulfate) 2 gm in 50 mls @ 50 mls/hr IV UD PRN PRN Reason: MG = or < 1.7 Acetaminophen (Ofirmev) 1,000 mg in 100 mls @ 200 mls/hr IV Q6HP PRN PRN Reason: PAIN/FEVER > 101 Iron Carb/Multivit/Devens/Folic Acid (Multivitamin W/Minerals) 1 tab PO DAILY [facility] Last Admin: 07/21/19 08:48 Dose: 1 tab Documented by: Lisinopril (Zestril) 20 mg PO BID [facility] Last Admin: 07/21/19 08:46 Dose: 20 mg Documented by: Melatonin (Melatonin 3mg Tablet) 3 mg PO HSP PRN PRN Reason: Insomnia Metoprolol Succinate (Toprol Xl) 50 mg PO DAILY [facility] Last Admin: 07/21/19 08:47 Dose: 50 mg Documented by: Omeprazole (Prilosec) 20 mg PO ACB [facility] Last Admin: 07/21/19 07:25 Dose: 20 mg Documented by: Ondansetron HCl (Zofran) 4 mg IV Q4-6HP PRN PRN Reason: Nausea And Vomiting Oxybutynin Chloride (Ditropan) 5 mg PO DAILY [facility] Last Admin: 07/21/19 08:40 Dose: 5 mg Documented by: Paroxetine HCl (Paxil) 40 mg PO DAILY [facility] Last Admin: 07/21/19 08:39 Dose: 40 mg Documented by: Potassium Chloride (Klor-Con) 40 meq PO DAILYP PRN PRN Reason: K+ < 3.5 Senna/Docusate Sodium (Senna Plus Tablet) 1 tab PO HS [facility] Last Admin: 07/20/19 21:14 Dose: Not Given Documented by: Sodium Chloride (Saline Flush) 10 ml IV Q8 [facility] Last Admin: 07/21/19 13:39 Dose: 10 ml Documented by: Medical - PN: A/P - Time Spent With Patient Total time spent is greater than 50% in coordination of care (as documented) at patient's floor/unit and/or counseling patient: - Narrative A/P Narrative: Hypertensive emergency Presented with a systolic blood pressure more than 230 and flash pulmonary edema Initiated on lisinopril and nicardipine drip-nicardipine weaned off Lisinopril titrated to 20 twice daily Continued home beta-raul 50 mg metoprolol Repeat echocardiogram no evidence of heart failure ejection fraction 75% and concentric hypertrophy due to uncontrolled blood pressure Acute hypoxic respiratory failure-improved pulmonary edema due to uncontrolled hypertension-improved History of complicated E. coli Antibiotic discontinued Bilateral lymphedema Improved with the diuresis Diuretics will be changed to p.o. GERD Continued PPI Hyperlipidemia Continue statin Anxiety disorder Continue Paxil DVT prophylaxis-Lovenox CODE STATUS-full code
[2019-07-21] MEDS: ATORVASTATIN 20 MG TABLET PO SCH (20:45)
[2019-07-21] MEDS: SENNOSIDES/DOCUSATE SODIUM 1 TAB TABLET PO SCH (20:47)
[2019-07-22 05:04] LABS: Hematocrit 39.8 % (36.0-48.0); Hemoglobin 12.9 g/dL (12.0-15.0); Mean Cell Volume 87.2 fL (80.0-100.0); Mean Corpuscular HGB Conc 32.4 g/dL (31.0-36.0); Mean Platelet Volume 8.6 fL (7.4-10.4); Platelet Count 218 K/mcL (140-440); RBC 4.57 M/mcL (4.00-5.20); Red Cell Distribution Width 14.5 % (11.5-14.5); WBC 8.3 K/mcL (4.5-11.0)
[2019-07-22 05:34] LABS: ALT/SGPT 14 U/l (0-40); AST/SGOT 16 U/l (0-37); Albumin 3.6 gm/dL (3.2-5.2); Albumin/Globulin Ratio 1.1 (1.0-2.3); Alkaline Phosphatase 115 U/L (39-117); Bilirubin,Direct < 0.2 mg/dL (0.0-0.3); Bilirubin,Total 0.3 mg/dL (0.0-1.0); Blood Urea Nitrogen 23 mg/dl (8-23); Carbon Dioxide 27 mmol/L (22-30); Chloride 103 mmol/L (96-108); Globulin 3.4 gm/dL (2.2-3.7); Glomerular Filtration Rate 49; Glucose 97 mg/dL (70-105); Lactate Dehydrogenase 160 U/L (94-250); Phosphorous 3.4 mg/dL (2.7-4.5); Triglycerides 159 mg/dl (<150); Uric Acid 5.9 mg/dL (2.5-8.0)
[2019-07-22] MEDS: FUROSEMIDE 40 MG TABLET PO SCH (07:56)
[2019-07-22] MEDS: LISINOPRIL 20 MG TABLET PO SCH (07:58)
[2019-07-22] MEDS: METOPROLOL SUCCINATE 50 MG TAB.XL.24H PO SCH (07:59)
[2019-07-22] MEDS: OMEPRAZOLE 20 MG CAPSULE PO SCH (07:59)
[2019-07-22] MEDS: 0.9 % SODIUM CHLORIDE 10 ML SYRINGE IV SCH (08:01)
[2019-07-22 10:00] LABS: Eosinophils % (Manual) 6 % (0-7); Lymphocytes % 26 % (15-49); Monocytes % (Manual) 5 % (1-12); Platelet Estimate NORMAL (NORMAL); RBC Morphology NORMAL (NORMAL); Segmented Neutrophils % 63 % (38-78)
--- NOTE | 2019-07-22 10:47 | Discharge Summary ---
Medical - DS: Prov Patient information: Note initiated : 07/22/19 at 10:45 am Service Date, if different from initiated Date: [] Patient: Romana Garcia 78 y/o F admitted on 07/18/19 for Chest pain. Chief Complaint: [] Date of admission: 07/18/19 19:56 Discharge date: 07/22/19 Primary care physician: Dinesh Olsen Consults: 07/18/19 Consult to Physician [CONS] Stat Comment: Consulting Provider: Federico Dias Reason For Exam: Physician to Consult Medical - DS: Meds - Discharge Medications Prescriptions: Potassium Chloride [Klor-Con] 20 meq PO DAILYP PRN #14 packet PRN Reason: K+ < 3.5 Transmission Status: Pending to [facility] Furosemide [Lasix] 40 mg PO DAILY #14 tab Transmission Status: Pending to [facility] amLODIPine [Norvasc] 5 mg PO DAILY #30 tab Transmission Status: Pending to [facility] Metoprolol Succinate [Toprol Xl] 50 mg PO DAILY #60 tab Transmission Status: Pending to [facility] Lisinopril [Zestril] 20 mg PO BID #60 tab Transmission Status: Pending to [facility] Active and Home Medications: Home Medications Estradiol [Estrace] 1 mg PO DAILY 08/12/15 [History Confirmed 07/18/19 Last Taken 08/15/15 09:00] Omeprazole [Prilosec] 20 mg PO ACB 08/12/15 [History Confirmed 07/18/19 Last Taken 08/15/15 09:00] Oxybutynin Chloride [Ditropan] 5 mg PO DAILY 08/12/15 [History Confirmed 07/18/19 Last Taken 08/15/15 09:00] PARoxetine HCL [Paxil] 40 mg PO DAILY 08/12/15 [History Confirmed 07/18/19 Last Taken 08/15/15 09:00] atorvastatin 40 mg tablet 40 mg PO QDAY 10/09/18 [History Confirmed 07/18/19 Last Taken Unknown] Furosemide [Lasix] 40 mg PO DAILY #14 tab 07/22/19 [Rx Last Taken Unknown] Lisinopril [Zestril] 20 mg PO BID #60 tab 07/22/19 [Rx Last Taken Unknown] Metoprolol Succinate [Toprol Xl] 50 mg PO DAILY #60 tab 07/22/19 [Rx Last Taken Unknown] Multivit,Ther Iron,Ca,FA & Min [Multivitamin W/Minerals] 1 tab PO DAILY tablet 07/22/19 [Rx Last Taken Unknown] Potassium Chloride [Klor-Con] 20 meq PO DAILYP PRN #14 packet 07/22/19 [Rx Last Taken Unknown] amLODIPine [Norvasc] 5 mg PO DAILY #30 tab 07/22/19 [Rx Last Taken Unknown] Medical - DS: Hosp Hospital Course: Ms. Garcia is a 78 year old F with a known history of poorly controlled hypertension who presents to minor care with epigastric discomfort along with shortness of breath. Initial work-up was consistent with hypertensive crisis systolics around 250. She was referred to [facility] ER where after initial work- up she was started on nicardipine drip. Initial troponins were negative. Hospitalist service was consulted after chest angiogram CT revealed multifocal infiltrates suggestive of pneumonia without evidence of PE or dissection. At the time of evaluation patient is alert and oriented. She endorses to poorly controlled hypertension for which she has not sought medical attention. She is currently on metoprolol. She endorses to bilateral lower extremity increasing swelling over the last couple of weeks along with increasing redness and pain. Additionally she complains of increasing exertional dyspnea from initially on m aximal exertion now on minimal exertion. She is however able to talk in full sentences while at rest. Denies orthopnea or paroxysmal nocturnal dyspnea At the time of evaluation patient is alert and oriented. She denies active distress. She does feel short of breath and complains of bilateral lower extremity pain and swelling. She denies changes in medications. She further denies using NSAIDs or high salt diet. She denies unilateral weakness/blurred vision/hematuria or bloody stool 07/19-patient doing remarkably better. No overnight events. Shortness with improved. Left lower extremity lymphedema and redness much improved. Systolics around 150. Nicardipine drip at 2. Started on LEONARD inhibitor, continue metoprolol 50. Wean nicardipine as tolerated. DC antibiotic coverage in light of negative procalcitonin. 07/20-patient doing a lot better. Responding to antihypertensives with blood pressure around 145 down from 240. Flash pulmonary edema clinically resolved. Off nicardipine drip. Continue uptitrating antihypertensives. Repeat chest imaging awaited. DC antibiotics as no evidence of pneumonia with a negative procalcitonin. Transition to medical floor. White count 8000. Creatinine stable at 1.2. 07/21: Blood pressure remain more than 160, increase lisinopril to 20 twice daily, pulmonary edema improved and she is saturating more than 95% on room air. Bilateral leg erythema probably due to edema. No evidence of pneumonia clinically or laboratory cisneros but CTA was suspicious. Antibiotic discontinued no evidence of sepsis. Discussed with the patient and once her blood pressure is controlled less than 160 on p.o. medication plan is to discharge her tomorrow. 07/22 -blood pressure remain around 160s and started amlodipine 5 mg twice daily. Discussed with the patient she will be discharged home strongly encourage her to record her blood pressure twice daily and follow-up with the primary care provider. If she continued having high blood pressure she need work-up for secondary causes including renal artery stenosis, hyperaldosteronism etc Hypertensive emergency Presented with a systolic blood pressure more than 230 and flash pulmonary edema Initiated on lisinopril and nicardipine drip-nicardipine weaned off Lisinopril titrated to 20 twice daily Continued home beta-raul 50 mg metoprolol twice daily Started on amlodipine 5 mg twice daily She needs to follow-up with a primary care provider in a week Strongly recommend to keep a log of her blood pressure daily 2 times Repeat echocardiogram no evidence of heart failure ejection fraction 75% and concentric hypertrophy due to uncontrolled blood pressure Acute hypoxic respiratory failure-improved pulmonary edema due to uncontrolled hypertension-improved She is saturating more than 95% on room air History of complicated E. coli Antibiotic discontinued No active urinary symptoms Bilateral lymphedema Improved with the diuresis Diuretics will be changed to p.o. GERD Continued PPI Hyperlipidemia Continue statin Anxiety disorder Continue Paxil Discharge diagnosis: Hypertensive emergency Secondary discharge diagnosis: Acute hypoxic respiratory failure Pulmonary edema Bilateral lower extremity swelling - Time Spent with Patient Total time spent providing and/or coordinating discharge services: Greater than 30 minutes Medical - DS: Exam - Constitutional Vitals: Vital Signs Temp Pulse Pulse Resp BP BP Pulse Ox 07/22/19 09:11 60 130/76 92 07/22/19 07:19 97.8 F 58 L 18 189/82 92 07/22/19 03:54 97.9 F 58 L 16 171/77 91 07/21/19 23:27 97.9 F 60 22 133/66 91 07/21/19 18:50 97.3 F 55 L 24 H 151/72 93 07/21/19 15:38 52 L 16 166/77 92 07/21/19 15:00 52 L 16 166/77 92 07/21/19 11:03 97.7 F 54 L 54 L 16 128/74 92 Intake and Output 07/21/19 07/22/19 07/22/19 21:59 05:59 13:59 Intake Total 600 450 270 Output Total 350 250 Balance 250 200 270 Intake: Oral 600 450 270 Output: Void Amount 350 250 Other: Meal Breakfast Percent of Meal Consumed 100% Feeding Ability Independent Urine Appearance Clear Urine Color Pale Urine Odor Normal Stool Color Brown Stool Consistency Loose # Voids 1 # Bowel Movements 3 Weight 250 lb General appearance: cooperative, no acute distress, obese - Head Head exam: Present: atraumatic, normal inspection, normocephalic - Eye Eye exam: Present: normal appearance. Absent: conjunctival injection Pupils: Present: PERRL - ENT ENT exam: Present: mucous membranes moist, normal exam - Neck Neck exam: Present: full ROM, normal inspection. Absent: meningismus - Respiratory Respiratory exam: Present: rales (left base). Absent: prolonged expiratory phase, respiratory distress, rhonchi, wheezes - Cardiovascular Cardiovascular exam: Present: normal rate and rhythm - GI/Abdominal GI/Abdominal exam: Present: normal bowel sounds, soft, distended - Neurological Exam Neurological exam: Present: alert, oriented X3 - Psychiatric Psychiatric exam: Present: normal affect, normal mood. Absent: agitated, anxious, depressed Medical - DS: Data Labs on day of discharge: Labs from last 24 hours 07/22/19 07/22/19 03:55 03:55 WBC 8.3 RBC 4.57 Hgb 12.9 Hct 39.8 MCV 87.2 MCH 28.3 MCHC 32.4 RDW 14.5 Plt Count 218 MPV 8.6 Total Counted 100 Seg Neutrophils % 63 Band Neutrophils % Not Reportable Lymphocytes % 26 Monocytes % (Manual) 5 Eosinophils % (Manual) 6 Platelet Estimate Normal RBC Morphology Normal Sodium 142 Potassium 3.9 Chloride 103 Carbon Dioxide 27 Anion Gap 12.0 BUN 23 Creatinine 1.1 GFR Calculation 49 Glucose 97 Uric Acid 5.9 Calcium 9.0 Phosphorus 3.4 Magnesium 1.8 Total Bilirubin 0.3 Direct Bilirubin < 0.2 GGT 16 AST 16 ALT 14 Alkaline Phosphatase 115 Lactate Dehydrogenase 160 Total Protein 7.0 Albumin 3.6 Globulin 3.4 Albumin/Globulin Ratio 1.1 Triglycerides 159 H Preliminary micro results at discharge 07/18/19 19:38 Blood Culture - Preliminary Blood 07/18/19 19:39 Blood Culture - Preliminary Blood 07/20/19 11:37 Sputum Culture - Preliminary Sputum - Expectorated Medical - DS: A/P - Patient/Caregiver Discharge Instructions Diet: Low Sodium (2gm) Prescriptions: Potassium Chloride [Klor-Con] 20 meq PO DAILYP PRN #14 packet PRN Reason: K+ < 3.5 Transmission Status: Pending to [facility] Furosemide [Lasix] 40 mg PO DAILY #14 tab Transmission Status: Pending to [facility] amLODIPine [Norvasc] 5 mg PO DAILY #30 tab Transmission Status: Pending to [facility] Metoprolol Succinate [Toprol Xl] 50 mg PO DAILY #60 tab Transmission Status: Pending to [facility] Lisinopril [Zestril] 20 mg PO BID #60 tab Transmission Status: Pending to [facility] - Follow up Plan Follow up with: Dinesh Olsen ARNP [Primary Care Provider] - 07/28/19 (Follow-up blood pressure Follow-up renal function Follow-up the need of diuretics) Disposition: Home, Self-Care Prognosis: Fair Rehab Potential: Good
[2019-07-22] MEDS: PARoxetine 20 MG TABLET PO SCH (11:06)
[2019-07-22] MEDS: DOCUSATE SODIUM 100 MG CAPSULE PO SCH (11:08)
[2019-07-22] MEDS: MULTIVIT,THER IRON,CA,FA & MIN 1 TABLET PO SCH (11:09)
[2019-07-22] MEDS: OXYBUTYNIN CHLORIDE 5 MG TABLET PO SCH (11:10)
[2019-07-22] MEDS: HEPARIN 5,000 UNIT/ML VIAL SQ SCH (11:10)
[2019-07-22] MEDS ORDERED: FLU VACC QS2019-20(6MOS UP)/PF 60 MCG/0.5 ML SYRINGE IM ONE (13:00)
== END 2019-07-22 11:57 | disposition home or self-care (01) | DRG 304 ==
LOC: ED 15:58 → ICU 19:56 → MEDSUR 07-20 14:53
PROVIDERS: ADMIT Internal Medicine; ATTEND Internal Medicine